=== PATIENT | female | born 1990 | race Caucasian/White ===

== ENCOUNTER 2022-05-29 11:10 | Emergency (ER) | payer SELFPAY ==
[~2022-05-29] VITALS: Ht 147.8 cm; Wt 55.1 kg
[2022-05-29 11:22] VITALS: BP 104/52
--- NOTE | 2022-05-29 11:30 | NUR ---
PT AMBULATED TO ER BED 7
--- NOTE | 2022-05-29 11:53 | NUR ---
31YR OLD FEMALE BIB SELF C/O ABD PAIN X9DAYS. PT STATES BEING DIZZY METZ . DENIES FEVER . 8/10 PAIN. PT A&OX4 SKIN WARM PINK DRY. RESP EVEN AND UNLABORED. PT IN GOWN HOB ELEVATED. BED AT LOWEST POSITION. NKDA ANEMIA
--- NOTE | 2022-05-29 11:53 | NUR ---
ER AT BEDSIDE
[2022-05-29] MEDS ORDERED: ACETAMINOPHEN 325 MG TAB PO ONE (11:55)
[2022-05-29] MEDS ORDERED: FAMOTIDINE 20 MG TAB PO ONE (11:55)
[2022-05-29] MEDS ORDERED: ONDANSETRON 4 MG ODT PO ONE (11:55)
--- NOTE | 2022-05-29 12:14 | NUR ---
ULTRASOUND AT BEDSIDE
[2022-05-29 12:46] LABS: BASOPHILS % (AUTO) 0.5 % (0.0-2.0); EOSINOPHILS # (AUTO) 0.1 K/uL (0-0.4); HEMATOCRIT 36.4 % (36-48); HEMOGLOBIN 12.1 g/dL (12.0-16.0); LYMPHOCYTES # (AUTO) 1.7 K/uL (2.5-16.5); LYMPHOCYTES % (AUTO) 31.5 % (20.5-51.1); MEAN CORPUSCULAR HEMOGLOBIN 29 pg (27-31); MEAN CORPUSCULAR HGB CONC 33 g/dL (33-37); MEAN CORPUSCULAR VOLUME 86.8 fL (80-94); MONOCYTES # (AUTO) 0.4 K/uL (0.8-1.0); MONOCYTES % (AUTO) 7.1 % (1.7-9.3); NEUTROPHILS # (AUTO) 3.2 K/uL (1.8-7.7); NEUTROPHILS % (AUTO) 59.9 % (42.2-75.2); PLATELET COUNT (AUTO) 211 K/uL (140-450); RED BLOOD CELL COUNT(AUTO) 4.19 MIL/uL (4.20-5.40); RED CELL DISTRIBUTION WIDTH 13.6 % (11.6-13.7); WHITE BLOOD COUNT (AUTO) 5.4 K/uL (4.8-10.8)
[2022-05-29 13:20] LABS: ALBUMIN 3.4 g/dL (3.4-5.0); ANION GAP 10.2 (8-16); CARBON DIOXIDE 27.5 mmol/L (21-32); CREATININE 0.7 mg/dL (0.6-1.3); POTASSIUM 3.7 mmol/L (3.5-5.1); TOTAL BILIRUBIN 0.3 mg/dL (0.0-1.0)
[2022-05-29] MEDS ORDERED: FAMO-92 PO (13:27)
[2022-05-29] MEDS ORDERED: MAG-27 PO (13:27)
[2022-05-29] MEDS ORDERED: ONDA-188 PO (13:27)
--- NOTE | 2022-05-29 13:29 | NUR ---
PENDING DC PAPERWORK
[2022-05-29 13:35] VITALS: BP 99/55
--- NOTE | 2022-05-29 13:35 | NUR ---
Patient discharged with v/s stable. Written and verbal after care instructions given and explained. Patient alert, oriented and verbalized understanding of instructions. Ambulatory with steady gait. All questions addressed prior to discharge. ID band removed. Patient advised to follow up with PMD. Rx of PEPCID ZOFRAN ODT MYLANTA given. Patient educated on indication of medication including possible reaction and side effects. Opportunity to ask questions provided and answered.
== END 2022-05-29 13:35 | disposition home or self-care (01) ==
LOC: MED 11:10
DX: K29.70 Gastritis, unspecified, without bleeding (principal); Z90.49 Acquired absence of other specified parts of digestive tract; Z98.890 Other specified postprocedural states; Z79.899 Other long term (current) drug therapy
CPT/HCPCS: 36415; 76705; 80053; 81002; 81025; 83690; 85025; 99284; Q0092; Q0162

== ENCOUNTER 2022-06-10 19:41 | Emergency (ER) | payer SELFPAY ==
[~2022-06-10] VITALS: Ht 157.5 cm; Wt 63.0 kg
[~2022-06-10 19:41] MED LIST: FAMO-92 PO; MAG-27 PO; ONDA-188 PO
[2022-06-10 20:40] VITALS: BP 118/81
--- NOTE | 2022-06-10 20:43 | NUR ---
TO LOBBY A/W BED AMBULATORY
[2022-06-10] MEDS ORDERED: ONDANSETRON 4 MG ODT PO ONE (20:55)
--- NOTE | 2022-06-10 20:55 | NUR ---
SEEN AND EXAMINED BY KAY
[2022-06-10] MEDS ORDERED: KETOROLAC 30 MG/ML VIAL IVP ONE (21:05)
[2022-06-10] MEDS ORDERED: NACL 0.9% 1,000 ML IV ONE (21:05)
[2022-06-10] MEDS ORDERED: ONDANSETRON 4 MG/2 ML VIAL IVP ONE (21:05)
[2022-06-10 21:18] LABS: BASOPHILS % (AUTO) 0.6 % (0.0-2.0); EOSINOPHILS # (AUTO) 0.1 K/uL (0-0.4); EOSINOPHILS % (AUTO) 0.9 % (0.0-4.0); HEMATOCRIT 40.5 % (36-48); HEMOGLOBIN 13.6 g/dL (12.0-16.0); LYMPHOCYTES # (AUTO) 2.8 K/uL (2.5-16.5); LYMPHOCYTES % (AUTO) 39.2 % (20.5-51.1); MEAN CORPUSCULAR HEMOGLOBIN 29 pg (27-31); MEAN CORPUSCULAR HGB CONC 34 g/dL (33-37); MEAN CORPUSCULAR VOLUME 86.1 fL (80-94); MONOCYTES # (AUTO) 0.5 K/uL (0.8-1.0); MONOCYTES % (AUTO) 6.4 % (1.7-9.3); NEUTROPHILS # (AUTO) 3.8 K/uL (1.8-7.7); NEUTROPHILS % (AUTO) 52.9 % (42.2-75.2); PLATELET COUNT (AUTO) 222 K/uL (140-450); RED CELL DISTRIBUTION WIDTH 13.5 % (11.6-13.7); WHITE BLOOD COUNT (AUTO) 7.1 K/uL (4.8-10.8)
[2022-06-10 21:36] LABS: ANION GAP 9.7 (8-16); CARBON DIOXIDE 27.5 mmol/L (21-32); CREATININE 0.7 mg/dL (0.6-1.3); POTASSIUM 4.2 mmol/L (3.5-5.1); TOTAL BILIRUBIN 0.3 mg/dL (0.0-1.0)
--- NOTE | 2022-06-10 21:38 | NUR ---
PT TAKEN TO BED 11
--- NOTE | 2022-06-10 22:05 | NUR ---
31 Y/O FEMALE BIBS FROM HOME, C/O N/V/D X3 WEEKS. PT STATES ANYTHING SHE EATS MAKES HER NAUSEOUS AND SENDS HER TO THE RESTROOM. A/OX4, UNLABORED RBEATHING, AMBULATORY W/O ASSISTANCE. DENIES COUGH, FEVER, CP, OR SOB. SKIN IS PINK/WARM/DRY. HX: ANEMIA NKA MED: "MEDICATION FOR ANEMIA"
[2022-06-10] MEDS ORDERED: ONDA-188 PO (22:18)
[2022-06-10] MEDS ORDERED: IMO2 PO (22:18)
[2022-06-10] MEDS ORDERED: ACET-10509 PO (22:18)
[2022-06-10] MEDS ORDERED: FAMO-90 PO (22:34)
[2022-06-10] MEDS ORDERED: BEN10 PO (22:34)
[2022-06-10 23:12] VITALS: BP 120/76
--- NOTE | 2022-06-10 23:13 | NUR ---
Patient discharged with v/s stable. Written and verbal after care instructions given and explained. Patient alert, oriented and verbalized understanding of instructions. Ambulatory with steady gait. All questions addressed prior to discharge. ID band removed. Patient advised to follow up with PMD. Rx of TYLENOL, PEPCID, LOPERAMIDE, AND ZOFRAN given. Patient educated on indication of medication including possible reaction and side effects. Opportunity to ask questions provided and answered. VSS, A/OX4, AMBULATORY, UNLABORED BREATHING, AND CALM DEMEANOR.
== END 2022-06-10 23:13 | disposition home or self-care (01) ==
LOC: MED 19:41
DX: A08.4 Viral intestinal infection, unspecified (principal); Z79.899 Other long term (current) drug therapy
CPT/HCPCS: 36415; 80053; 84702; 85025; 96361; 96374; 96375; 99284; J1885; J2405; J7030